=== PATIENT | female | born 1975 | race Two or more races ===

== ENCOUNTER → 2022-06-02 | Outpatient (CLI) | payer OTHER ==
[~2022-06-02] MED LIST: DIPATR PO; PROM25 PO
[2022-06-04 14:10] LABS: HPV 16 Negative (Negative); HPV 18 Negative (Negative); HPV OTHER HR TYPES Negative (Negative)
== END ==
LOC: LAB 11:17 → RAD SHORT 11:17
PROVIDERS: Registered Nurse Community Health
DX: Z12.4 Encounter for screening for malignant neoplasm of cervix (principal)
CPT/HCPCS: 87624; G0123

== ENCOUNTER → 2023-07-13 | Outpatient (CLI) | payer OTHER ==
[2023-07-13 19:23] LABS: Follicle Stimulating Hormone 4.4 mIU/ml; Luteinizing Hormone 1.7 mIU/ml
== END ==
LOC: LAB SHORT 11:04
PROVIDERS: Registered Nurse Community Health
DX: Z12.4 Encounter for screening for malignant neoplasm of cervix (principal); R87.810 Cervical high risk human papillomavirus (HPV) DNA test positive; Z87.410 Personal history of cervical dysplasia
CPT/HCPCS: 36415; 83001; 83002